=== PATIENT | male | born 1970 | race Caucasian/White ===

== ENCOUNTER 2018-03-21 11:36 | Emergency (ER) | payer OTHER ==
[~2018-03-21] VITALS: Ht 175.3 cm; Wt 53.1 kg
[~2018-03-21 11:36] MED LIST: APAP/HYDROCODON1 T13 PO; BACDS PO; BAY PO; COL100 PO; DIF100 PO; ESCITALOPRAM10 M1 PO; FLO4 PO; LEXAPRO10 MG PO; MOR2I IV; NEU300 PO; NORVIR100 M2 PO; PREZISTA PO; PRI20 PO; SERO100 PO; SEROQUEL100 MG PO; SMZ-TMP1 TA1 PO; TIVICAY50 MG PO; TRUVADA1 TAB PO; VAL500 PO; ZIT250 PO; ZOFI IV
[2018-03-21 11:55] VITALS: Ht 175.3 cm; Wt 53.1 kg
[2018-03-21 12:40] LABS: BASOPHIL % 0.7 % (0-2); PLATELET COUNT 304 x10^3mcL (130-400)
[2018-03-21 12:57] LABS: RED CELL DISTRIBUTION WIDTH 18.2 % (11.5-14.5)
[2018-03-21 13:00] LABS: CALCIUM 9.1 mg/dL (8.5-10.1); CARBON DIOXIDE 26.9 mmol/L (21-32); CREATININE SERUM 1.5 mg/dL (0.7-1.3); POTASSIUM SERUM 4.1 mmol/L (3.5-5.1)
[2018-03-21 14:00] VITALS: BP 108/72
== END 2018-03-21 14:00 | disposition home or self-care (01) ==
LOC: ED 11:36
PROVIDERS: Emergency Medicine
DX: J06.9 Acute upper respiratory infection, unspecified (principal)
CPT/HCPCS: J2270; J2405; J2543; Q0092

== ENCOUNTER 2018-07-19 19:58 | Emergency (ER) | payer OTHER ==
[~2018-07-19] VITALS: Ht 170.2 cm; Wt 57.2 kg
[2018-07-19 20:10] VITALS: Ht 170.2 cm; Wt 57.2 kg
[2018-07-19 21:17] LABS: BASOPHIL % 0.3 % (0-2); PLATELET COUNT 236 x10^3mcL (130-400)
[2018-07-19 21:19] LABS: RED CELL DISTRIBUTION WIDTH 16.8 % (11.5-14.5)
[2018-07-19 21:21] LABS: CALCIUM 8.3 mg/dL (8.5-10.1); CARBON DIOXIDE 27.5 mmol/L (21-32); CREATININE SERUM 1.4 mg/dL (0.7-1.3); POTASSIUM SERUM 3.7 mmol/L (3.5-5.1)
[2018-07-19 21:25] LABS: ALBUMIN 3.4 g/dL (3.4-5.0); BILIRUBIN TOTAL 0.35 mg/dL (0.20-1.00); TOTAL PROTEIN, SERUM 8.1 g/dL (6.4-8.2)
[2018-07-19 21:59] VITALS: BP 109/68
== END 2018-07-19 22:30 | disposition home or self-care (01) ==
LOC: ED 19:58
PROVIDERS: Emergency Medicine
DX: G89.29 Other chronic pain (principal); M25.512 Pain in left shoulder; J06.9 Acute upper respiratory infection, unspecified; F17.210 Nicotine dependence, cigarettes, uncomplicated; Z71.6 Tobacco abuse counseling; Z86.73 Personal history of transient ischemic attack (TIA), and cerebral infarction without residual deficits
CPT/HCPCS: 36415; 99406; Q0092

== ENCOUNTER 2019-06-23 16:21 | Emergency (ER) | payer OTHER ==
[~2019-06-23] VITALS: Ht 162.6 cm; Wt 63.5 kg
[2019-06-23 16:39] VITALS: Ht 162.6 cm; Wt 63.5 kg
[2019-06-23 20:44] VITALS: BP 164/78
== END 2019-06-23 20:44 ==
LOC: ED 16:21
DX: S00.83XA Contusion of other part of head, initial encounter (principal); S09.8XXA Other specified injuries of head, initial encounter; W07.XXXA Fall from chair, initial encounter; Y93.89 Activity, other specified; Y92.89 Other specified places as the place of occurrence of the external cause; Y99.8 Other external cause status